=== PATIENT | female | born 1960 | race Caucasian/White ===

== ENCOUNTER 2024-04-25 10:08 | Emergency (ER) | payer OTHER ==
[~2024-04-25] VITALS: Ht 165.1 cm; Wt 97.7 kg
--- NOTE | 2024-04-25 10:27 | ECG ---
[facility] Test Date: 2024-04-25 Test Time: 10:10:57 Pat Name: MOY DALAL Department: er Room: Gender: F [employer] Operator: er : 1960 Requested By: PIERRE LOCKHART Order Number: [id number] Reading MD: Measurements Intervals [place] Rate: 140 P: 0 IN: 0 QRS: 92 QRSD: 148 T: -13 QT: 362 QTc: 553 Interpretive Statements Atrial flutter Right bundle branch block Please click the below link to view image of tracing.
--- NOTE | 2024-04-25 11:16 | DVH ---
CHEST RADIOGRAPH Indication: PALPITATIONS Technique: Single frontal view of the chest was obtained COMPARISON: None FINDINGS: Lines and Tubes: None Lungs: Clear Pleura: No effusion. No pneumothorax. Cardiomediastinal contours: Unremarkable Bones: Unremarkable IMPRESSION: No acute disease.
[2024-04-25 11:30] LABS: Albumin 4.5 g/dL (3.2-4.8); Alkaline Phosphatase 110 U/L (46-116); Anion Gap 8 (5-15); Aspartate Aminotransferase 13 U/L (13-40); BUN/Creatinine Ratio 18.9 (10.0-20.0); Bilirubin, Total 0.4 mg/dL (0.2-1.0); Blood Urea Nitrogen 17 mg/dL (9-23); Calcium 9.4 mg/dL (8.7-10.4); Carbon Dioxide 28 mmol/L (20-31); Chloride 105 mmol/L (98-107); Glucose 104 mg/dL (74-106); Potassium 3.3 mmol/L (3.5-5.1); Sodium 141 mmol/L (136-145); Total Protein 7.4 g/dL (5.7-8.2)
[2024-04-25 11:35] LABS: Alanine Aminotransferase 9 U/L (7-40)
[2024-04-25 11:41] LABS: INR 0.97 (0.9-1.15); Partial Thromboplastin Time 26.5 SEC (24.5-34.5); Prothrombin Time 10.3 sec (9.3-11.8)
[2024-04-25 11:59] LABS: Basophils # (auto) 0 10 ^3/uL (0-0.2); Basophils % (auto) 0.6 % (0.0-2.0); Eosinophils # (auto) 0.1 10 ^3/uL (0-0.8); Eosinophils % (auto) 2.3 % (0.0-7.0); Hematocrit 26.4 % (36.0-46.0); Hemoglobin 8.4 g/dL (12.2-16.2); Lymphocytes # (auto) 1.1 10 ^3/uL (0.4-5.4); Lymphocytes % (auto) 22.1 % (10.0-50.0); Mean Corpuscular Hemoglobin 22.9 pg (28.0-32.0); Mean Corpuscular Hgb Conc. 31.7 g/dL (32.0-36.0); Mean Corpuscular Volume 72.5 fL (80.0-100.0); Monocytes # (auto) 0.5 10 ^3/uL (0-1.3); Monocytes % (auto) 9.7 % (0.0-12.0); Neutrophils # (auto) 3.2 10 ^3/uL (1.6-8.6); Neutrophils % (auto) 65.3 % (37.0-80.0); Platelet Count (auto) 285 10^3/uL (140-450); Red Blood Cells 3.65 10^6/uL (4.0-5.20); Red Cell Distribution Width 18.4 % (11.8-14.3); White Blood Cell 4.8 10^3/uL (4.4-10.8)
[2024-04-25 12:16] LABS: Urine Bacteria None Seen /hpf (None Seen)
--- NOTE | 2024-04-25 12:21 | ED.PDOC ---
HPI Comments 63-year-old female with past medical history of asthma, hypertension, childhood murmur was referred to the ED by [facility] for abnormal EKG and high heart rate. She mentioned that she went to [facility] for complaints of twitching in the hand for last one month, where they found some abnormality in the EKG and referred to the ED. she did not complaint of any chest pain, shortness of breath, palpitations, orthopnea, PND. She denied any other active complaints. She takes diltiazem at home, but does not know the reason. PMH asthma, hypertension, childhood murmur PSH Medication history Aspirin, baclofen, albuterol, hydrochlorothiazide, diltiazem Allergic history No known allergies Family history Not significant ROS Constitutional: No: Fever, Chills, Sweats, Weakness, Malaise, Other Respiratory: No: Cough, Dry, Shortness of breath, SOB with excertion, Wheezing, Hemoptysis, Pleuritic Pain, Sputum, Wheezing, Other Cardiovascular: No: Chest Pain, Palpitations, Orthopnea, Paroxysmal Noc. Dyspnea, Edema, Lt Headedness, Other Gastrointestinal: No: Nausea, Vomiting, Abdominal Pain, Diarrhea, Constipation, Melena, Hematochezia, Other Musculoskeletal: No: other, neck pain, shoulder pain, arm pain, back pain, hand pain, leg pain, foot pain Neurological:; No: Weakness, Numbness, Incoordination, Change in speech, Confusion, Seizures Examination General Appearance: Alert, Oriented X3, Cooperative, No acute distress Respiratory: Clear to auscultation, Normal air movement Cardiovascular: Regular rate, Normal S1, Normal S2 Abdominal: Soft Extremities: Bilateral pedal pitting edema Skin: No rashes, No breakdown Neuro: Normal speech and tone, resting tremors bilateral hand Chief Complaint: Palpitations Time Seen by MD: 10:40 Reviewed Notes: Nurses Notes, Allergies Allergies: Coded Allergies: NO KNOWN ALLERGIES (Unverified , 04/25/24) Information Source: Patient Mode of Arrival: EMS Past Medical History Past Medical History (Other): asthma, hypertension, childhood murmur Surgical History: (2 times) Surgical History (Other): Bilateral forearm surgeries for traumatic injury Family History Family History (Other): No significant family history contributing to the current illness Social History Smoker: Secondhand ( smokes cigarettes for greater than 40 years) Alcohol: Denies ETOH Use Drugs: Denies Drug Use All Other Systems: Reviewed and Negative Physical Exam General Appearance: Other (mentioned in the note) HEENT: Other (mentioned in the note) Neck: NOT DONE (mentioned in the note) Respiratory: Lungs Clear, Other (mentioned in the note) Cardiovascular: Other (mentioned in the note) Breast Exam: Deferred Gastrointestinal: Non Tender, Soft Genitalia: Deferred Pelvic: Deferred Rectal: Deferred Extremities: Leg edema (Bilateral pedal pitting edema) Neurologic: Other (Normal speech, normal tone, bilateral resting tremor) Cerebellar Function: Other (mentioned in the note) Reflexes: Other (mentioned in the note) Skin: Other (mentioned in the note) Lymphatic: Other (mentioned in the note) CP Differential Dx Differential Diagnosis: A-fib, A-Flutter, Sinus Tachycardia X-Ray, Labs, Meds, VS Vital Signs Date Time Temp Pulse Resp B/P (MAP) Pulse Ox O2 Delivery O2 Flow Rate FiO2 04/25/24 16:11 97.7 91 16 164/84 (110) 96 97.7 04/25/24 14:00 106 14 169/90 (116) 96 04/25/24 13:00 98 16 148/69 (95) 98 04/25/24 12:38 97 04/25/24 12:34 96 16 98 Room Air* 0 21 04/25/24 12:05 106 04/25/24 11:11 99 04/25/24 11:05 102 04/25/24 11:00 102 24 151/66 (94) 96 04/25/24 10:50 98.3 100 20 146/65 (92) 98 98.3 04/25/24 10:25 98.1 137 14 144/82 (102) 96 04/25/24 10:10 140 Lab Test 04/25/24 14:38 04/25/24 11:50 04/25/24 10:49 Range/Units Troponin I High Sensitivity 13 10 12 </=34 ng/L Urine Color Straw Yellow Urine Clarity Clear Clear Urine pH 7.5 5.0-9.0 Urine Specific [place] 1.012 1.001-1.035 Urine Protein Negative Negative Urine Ketones Negative Negative Urine Blood Negative Negative /uL Urine Nitrite Negative Negative Urine Bilirubin Negative Negative Urine Urobilinogen Normal Negative mg/dL Urine Leukocyte Esterase Negative Negative /uL Urine RBC None seen 0 - 4 /hpf Urine WBC <1 0 - 5 /hpf Urine Squamous Epithelial Cells Few <5 /hpf Urine Bacteria None seen None Seen /hpf Urine Glucose Normal Normal mg/dL White Blood Count 4.8 4.4-10.8 10^3/uL Red Blood Count 3.65 L 4.0-5.20 10^6/uL Hemoglobin 8.4 L 12.2-16.2 g/dL Hematocrit 26.4 L 36.0-46.0 % Mean Corpuscular Volume 72.5 L 80.0-100.0 fL Mean Corpuscular Hemoglobin 22.9 L 28.0-32.0 pg Mean Corpuscular Hemoglobin Concent 31.7 L 32.0-36.0 g/dL Red Cell Distribution Width 18.4 H 11.8-14.3 % Platelet Count 285 140-450 10^3/uL Mean Platelet Volume 8.5 6.9-10.8 fL Neutrophils (%) (Auto) 65.3 37.0-80.0 % Lymphocytes (%) (Auto) 22.1 10.0-50.0 % Monocytes (%) (Auto) 9.7 0.0-12.0 % Eosinophils (%) (Auto) 2.3 0.0-7.0 % Basophils (%) (Auto) 0.6 0.0-2.0 % Neutrophils # (Auto) 3.2 1.6-8.6 10 ^3/uL Lymphocytes # (Auto) 1.1 0.4-5.4 10 ^3/uL Monocytes # (Auto) 0.5 0-1.3 10 ^3/uL Eosinophils # (Auto) 0.1 0-0.8 10 ^3/uL Basophils # (Auto) 0 0-0.2 10 ^3/uL Nucleated Red Blood Cells 0.0 % Prothrombin Time 10.3 9.3-11.8 sec Prothrombin Time INR 0.97 0.9-1.15 Activated Partial Thromboplast Time 26.5 24.5-34.5 SEC Sodium Level 141 136-145 mmol/L Potassium Level 3.3 L 3.5-5.1 mmol/L Chloride Level 105 98-107 mmol/L Carbon Dioxide Level 28 20-31 mmol/L Anion Gap 8 5-15 Blood Urea Nitrogen 17 9-23 mg/dL Creatinine 0.90 0.550-1.02 mg/dL Glomerular Filtration Rate Calc 71 >90 mL/min BUN/Creatinine Ratio 18.9 10.0-20.0 Serum Glucose 104 74-106 mg/dL Calcium Level 9.4 8.7-10.4 mg/dL Magnesium Level 2.2 1.6-2.6 mg/dL Total Bilirubin 0.4 0.2-1.0 mg/dL Aspartate Amino Transferase (AST) 13 13-40 U/L Alanine Aminotransferase (ALT) 9 7-40 U/L Alkaline Phosphatase 110 46-116 U/L B-Type Natriuretic Peptide 61.99 0-100 pg/mL Total Protein 7.4 5.7-8.2 g/dL Albumin 4.5 3.2-4.8 g/dL Thyroid Stimulating Hormone (TSH) 2.01 0.55-4.78 uIU/mL Time of 1ST Reevaluation: 13:27 (The case was discussed with the [facility] admitting team (HPI, physical exam, labs and diagnostic tests that were available at the time of disposition, ED course, treatment plan) on the phone. They agreed to transfer the patient to their facility for further evaluation and treatment per insurance requirement. Authorization #[id number] Dr. Rose patient will be transferred by ALS) Reevaluation 1ST: Improved Patient Education/Counseling: Diagnosis, Treatment Family Education/Counseling: No Family Present Comments Patient presented with the Twitching in the hands, abnormal EKG .workup was initiated. EKG revealed narrow complex QRS, regular tachycardia. Initial heart rate was in 140s Labs revealed hemoglobin of 8.4 and potassium of 3.3. Patient was given: IV diltiazem, oral potassium effervescent tablet. Later EKG showed sinus tachycardia with right bundle-branch block, heart rate improved to 100s. Patient has been reassessed in the ED and remained in a stable condition. Patient has been observed in the ED adequate length of time to insure improvement/stability. Patient will be transferred to [facility]. Departure 1 Departure Time of Disposition: 13:26 Impression: Primary Impression: Atrial fibrillation with RVR Additional Impression: Hypokalemia Disposition: 02 SHORT TERM HOSPITAL Admit to: [facility] Condition: Guarded Discharged With: Self Critical Care Note Critical Care Time?: No Stability Stability form required: Yes Heart Score Heart Score: Heart Score Response (Comments) Value History Slightly Suspicious 0 EKG Normal 0 Age 45-64 1 Risk Factors 1 or 2 risk factors 1 Troponin Normal limit 0 Total 2 ARIN JUNIOR Apr 25, 2024 12:21 DION MCDOWELL DO Apr 25, 2024 13:27
[2024-04-25 12:28] LABS: Urine Blood Negative /uL (Negative); Urine Clarity Clear (Clear); Urine Protein, UAD Negative (Negative); Urine Specific Gravity 1.012 (1.001-1.035); Urine Urobilinogen Normal (Negative); Urine WBC <1 /hpf (0 - 5); Urine pH 7.5 (5.0-9.0)
[2024-04-25 12:34] VITALS: PULSE 96; RESP 16; O2SAT 98
[2024-04-25 12:38] LABS: Urine Color STRAW (Yellow)
--- NOTE | 2024-04-25 12:43 | ECG ---
[facility] Test Date: 2024-04-25 Test Time: 11:11:40 Pat Name: MOY DALAL Department: ER Room: Gender: F Simulation Specialist: KIANNA : 1960 Requested By: PIERRE LOCKHART Order Number: [id number] Reading MD: Measurements Intervals [place] Rate: 99 P: 83 [place]: 177 QRS: 41 QRSD: 151 T: -29 QT: 397 QTc: 510 Interpretive Statements Sinus rhythm Probable left atrial enlargement Right bundle branch block Please click the below link to view image of tracing.
--- NOTE | 2024-04-25 12:43 | ECG ---
[facility] Test Date: 2024-04-25 Test Time: 12:38:20 Pat Name: MOY DALAL Department: er Room: Gender: F Crystal Slicer: nelida : 1960 Requested By: PIERRE LOCKHART Order Number: [id number] Reading MD: Measurements Intervals [place] Rate: 97 P: 46 [place]: 176 QRS: 54 QRSD: 153 T: -30 QT: 406 QTc: 516 Interpretive Statements Sinus rhythm Probable left atrial enlargement Right bundle branch block Please click the below link to view image of tracing.
[2024-04-25] MEDS: dilTIAZem 25 MG/5 ML VIAL IV ONE (12:48)
[2024-04-25] MEDS: POTASSIUM EFFERVESENT TAB 25 MEQ PO ONE (13:58)
[2024-04-25 16:11] VITALS: BP 164/84; PULSE 91; RESP 16; TEMP 97.7; O2SAT 96
== END 2024-04-25 16:25 | disposition short-term general hospital (02) ==
LOC: EDBD 10:08 → ER 10:08
DX: I48.91 Unspecified atrial fibrillation (principal); I48.92 Unspecified atrial flutter; E87.6 Hypokalemia; F17.200 Nicotine dependence, unspecified, uncomplicated; I10 Essential (primary) hypertension; J45.909 Unspecified asthma, uncomplicated; I45.10 Unspecified right bundle-branch block
CPT/HCPCS: 36415; 71045; 80053; 81001; 83735; 83880; 84443; 84484; 85025; 85610; 85730; 93005; 96374